=== PATIENT | female | born 1985 | race Two or more races ===

== ENCOUNTER 2018-03-10 11:31 | Inpatient (IN) | payer MEDICAID ==
[~2018-03-10] VITALS: Ht 162.6 cm; Wt 102.2 kg
[2018-03-10] MEDS ORDERED: SODIUM CHLORIDE 0.9% 1,000 ML IVB ONE (11:56)
[2018-03-10] MEDS ORDERED: ONDANSETRON HCL 4 MG/2 ML VIAL IV ONE (12:00)
[2018-03-10] MEDS ORDERED: KETOROLAC TROMETH 30 MG/ML 1ML VIAL IV ONE (12:00)
[2018-03-10 13:28] LABS: Basophils # (auto) 0 uL; Basophils % (auto) 0.1 % (0.0-2.0); Eosinophils # (auto) 0.1 uL; Eosinophils % (auto) 0.7 % (0.0-7.0); Hematocrit 39.5 % (36.0-46.0); Hemoglobin 13.4 g/dL (12.2-16.2); Lymphocytes # (auto) 1.8 uL; Lymphocytes % (auto) 12.2 % (10.0-50.0); Mean Corpuscular Hemoglobin 31.6 pg (28.0-32.0); Mean Corpuscular Hgb Conc. 33.9 g/dL (32.0-36.0); Mean Corpuscular Volume 93.1 fL (80.0-100.0); Monocytes # (auto) 1.1 uL; Monocytes % (auto) 7.6 % (0.0-12.0); Neutrophils # (auto) 11.9 uL; Neutrophils % (auto) 79.4 % (37.0-80.0); Platelet Count (auto) 330 10^3/uL (140-450); Red Blood Cells 4.24 10^6/uL (4.0-5.20); Red Cell Distribution Width 13.8 % (11.8-14.3)
[2018-03-10 13:45] LABS: Amylase 40 U/L (25-115); Lipase 127 U/L (73-393)
[2018-03-10 13:51] LABS: Albumin 3.4 g/dL (3.4-5.0); BUN/Creatinine Ratio 11.3; Bilirubin, Total 0.5 mg/dL (0.2-1.0); Calcium 8.4 mg/dL (8.5-10.1); Magnesium 2.5 mg/dL (1.6-2.6); Potassium 3.9 mmol/L (3.5-5.1); Total Protein 8.1 g/dL (6.4-8.2)
[2018-03-10] MEDS ORDERED: cefTRIAXone 1GM/10ml IVPUSH 10 ML IV ONE (15:00)
[2018-03-10] MEDS ORDERED: NITROGLYCERIN 0.4 MG SL TAB SL PRN (15:00)
[2018-03-10] MEDS ORDERED: ACETAMINOPHEN 325 MG TAB PO PRN (15:00)
[2018-03-10] MEDS ORDERED: MORPHINE SULF INJ 2 MG/ML SYRINGE 1ML IV PRN (15:00)
[2018-03-10] MEDS: SODIUM CHLORIDE 0.9% 1,000 ML IV SCH (15:20)
[2018-03-10 15:44] LABS: INR 1.03 (0.9-1.15)
[2018-03-10] MEDS: metroNIDAZOLE 500MG/100ML 100 ML IV SCH ×2 (16:06→22:17)
[2018-03-10 16:37] VITALS: BP 103/67
[2018-03-10] MEDS: MORPHINE SULF INJ 2 MG/ML SYRINGE 1ML IV PRN (16:45)
[2018-03-10] MEDS: ONDANSETRON HCL 4 MG/2 ML VIAL IV PRN (16:45)
[2018-03-10 17:00] LABS: Urine Bacteria NONE SEEN /hpf (None Seen); Urine Blood Negative /uL (Negative); Urine Mucus FEW (None Seen); Urine Specific Gravity 1.017 (1.001-1.035); Urine WBC 11 /hpf (0 - 5)
[2018-03-10 17:10] VITALS: BP 103/67
[2018-03-10 22:00] VITALS: BP 116/66
[2018-03-10] MEDS: FAMOTIDINE 20 MG TAB PO SCH (22:00)
[2018-03-11] MEDS: SODIUM CHLORIDE 0.9% 1,000 ML IV SCH ×3 (03:55→20:15)
[2018-03-11] MEDS: metroNIDAZOLE 500MG/100ML 100 ML IV SCH ×4 (03:55→21:40)
[2018-03-11] MEDS: MORPHINE SULF INJ 2 MG/ML SYRINGE 1ML IV PRN ×4 (03:56→18:38)
[2018-03-11 05:42] VITALS: BP 105/55
[2018-03-11 07:36] LABS: Basophils # (auto) 0 uL; Basophils % (auto) 0.2 % (0.0-2.0); Eosinophils # (auto) 0.1 uL; Eosinophils % (auto) 0.5 % (0.0-7.0); Hemoglobin 12.4 g/dL (12.2-16.2); Lymphocytes # (auto) 1.8 uL; Lymphocytes % (auto) 11.9 % (10.0-50.0); Mean Corpuscular Hemoglobin 30.9 pg (28.0-32.0); Mean Corpuscular Hgb Conc. 33.4 g/dL (32.0-36.0); Mean Corpuscular Volume 92.3 fL (80.0-100.0); Monocytes # (auto) 0.9 uL; Monocytes % (auto) 6.1 % (0.0-12.0); Neutrophils # (auto) 12.3 uL; Neutrophils % (auto) 81.3 % (37.0-80.0); Platelet Count (auto) 289 10^3/uL (140-450); Red Blood Cells 4.01 10^6/uL (4.0-5.20); Red Cell Distribution Width 13.8 % (11.8-14.3); White Blood Cell 15.1 10^3/uL (4.4-10.8)
[2018-03-11 07:57] LABS: Albumin 2.6 g/dL (3.4-5.0); BUN/Creatinine Ratio 8.2; Bilirubin, Total 1.2 mg/dL (0.2-1.0); Calcium 7.6 mg/dL (8.5-10.1); Potassium 3.4 mmol/L (3.5-5.1); Total Protein 6.9 g/dL (6.4-8.2)
[2018-03-11 08:00] VITALS: BP 109/51
[2018-03-11] MEDS: ONDANSETRON HCL 4 MG/2 ML VIAL IV PRN (09:47)
[2018-03-11] MEDS: FAMOTIDINE 20 MG TAB PO SCH (09:48)
[2018-03-11] MEDS: cefTRIAXone 1GM/10ml IVPUSH 10 ML IV SCH (09:48)
[2018-03-11] MEDS ORDERED: MULTIPLE VITAMIN TAB PO SCH (10:00)
[2018-03-11 12:00] VITALS: BP 110/55
[2018-03-11] MEDS: POTASSIUM CHL 20MEQ/100ML 100 ML IV SCH ×2 (15:51→18:39)
[2018-03-11 16:00] VITALS: BP 105/56
[2018-03-11] MEDS: HYDROcodone-ACET 5/325MG TAB PO PRN (21:42)
[2018-03-11 22:08] VITALS: BP 100/61
[2018-03-12] MEDS: SODIUM CHLORIDE 0.9% 1,000 ML IV SCH ×3 (00:08→18:05)
[2018-03-12] MEDS: metroNIDAZOLE 500MG/100ML 100 ML IV SCH ×4 (03:58→22:23)
[2018-03-12] MEDS: MORPHINE SULF INJ 2 MG/ML SYRINGE 1ML IV PRN ×2 (04:59→09:15)
[2018-03-12 05:55] VITALS: BP 120/72
[2018-03-12 07:08] LABS: Basophils # (auto) 0 uL; Basophils % (auto) 0.3 % (0.0-2.0); Eosinophils # (auto) 0.2 uL; Eosinophils % (auto) 1.3 % (0.0-7.0); Hematocrit 35.3 % (36.0-46.0); Hemoglobin 11.9 g/dL (12.2-16.2); Lymphocytes # (auto) 1.6 uL; Lymphocytes % (auto) 11.6 % (10.0-50.0); Mean Corpuscular Hemoglobin 31.6 pg (28.0-32.0); Mean Corpuscular Hgb Conc. 33.8 g/dL (32.0-36.0); Mean Corpuscular Volume 93.4 fL (80.0-100.0); Monocytes # (auto) 1.2 uL; Monocytes % (auto) 8.8 % (0.0-12.0); Neutrophils # (auto) 10.5 uL; Nucleated Red Blood Cells % 0.1 %; Platelet Count (auto) 283 10^3/uL (140-450); Red Blood Cells 3.78 10^6/uL (4.0-5.20); Red Cell Distribution Width 13.8 % (11.8-14.3); White Blood Cell 13.4 10^3/uL (4.4-10.8)
[2018-03-12 07:29] LABS: Albumin 2.4 g/dL (3.4-5.0); BUN/Creatinine Ratio 12.1; Bilirubin, Total 1.5 mg/dL (0.2-1.0); Calcium 7.9 mg/dL (8.5-10.1); Potassium 3.6 mmol/L (3.5-5.1); Total Protein 6.9 g/dL (6.4-8.2)
[2018-03-12 08:00] VITALS: BP 101/64
[2018-03-12] MEDS: cefTRIAXone 1GM/10ml IVPUSH 10 ML IV SCH (09:20)
[2018-03-12] MEDS: PANTOPRAZOLE 40 MG/10 ML VIAL IV SCH (09:20)
[2018-03-12 12:00] VITALS: BP 109/63
[2018-03-12] MEDS: HYDROmorphone HCL 2 MG/ML VL IV PRN ×3 (12:41→23:00)
[2018-03-12] MEDS: HYDROcodone-ACET 5/325MG TAB PO PRN (14:10)
[2018-03-12 16:00] VITALS: BP 125/81
[2018-03-12 20:00] VITALS: BP 93/59
[2018-03-12 22:00] VITALS: BP 93/59
[2018-03-13] MEDS: SODIUM CHLORIDE 0.9% 1,000 ML IV SCH ×3 (01:10→17:21)
[2018-03-13] MEDS: HYDROmorphone HCL 2 MG/ML VL IV PRN ×4 (03:54→20:07)
[2018-03-13] MEDS: metroNIDAZOLE 500MG/100ML 100 ML IV SCH ×4 (04:28→21:48)
[2018-03-13 05:08] VITALS: BP 88/40
[2018-03-13 06:34] LABS: INR 1.17 (0.9-1.15); Prothrombin Time 12.4 sec (9.27-12.13)
[2018-03-13 08:00] VITALS: BP 95/54
[2018-03-13 08:48] VITALS: BP 95/54
[2018-03-13] MEDS: cefTRIAXone 1GM/10ml IVPUSH 10 ML IV SCH (08:55)
[2018-03-13] MEDS: PANTOPRAZOLE 40 MG/10 ML VIAL IV SCH (08:56)
[2018-03-13] MEDS ORDERED: SUCCINYLCHOLINE CHLORIDE 20 MG/ML 10ML VIAL IV ONE (10:25)
[2018-03-13] MEDS ORDERED: LIDOCAINE 1% (LOCAL ANESTH.) PF 5ml SDV ONE (10:25)
[2018-03-13] MEDS ORDERED: BUPIVACAINE 0.25% INJ 50ML VIAL ONE (10:26)
[2018-03-13] MEDS ORDERED: PROPOFOL 10 MG/ML 20 ML IV ONE (10:43)
[2018-03-13] MEDS ORDERED: MIDAZOLAM HCL 1MG/1ML-2 ML VIAL ONE (10:44)
[2018-03-13] MEDS ORDERED: METOCLOPRAMIDE HCL 5MG/ml INJ 2ml VIAL ONE (11:05)
[2018-03-13] MEDS ORDERED: fentaNYL CITRATE 100 MCG/2 ML VL ONE (11:19)
[2018-03-13] MEDS ORDERED: ceFAZolin 1GM/50ML 50 ML IV ONE (11:26)
[2018-03-13] MEDS ORDERED: HYDROmorphone HCL 2 MG/ML VL IV PRN ×2 (11:30)
[2018-03-13] MEDS ORDERED: NALOXONE HCL 0.4 MG/ML VIAL IV PRN (11:30)
[2018-03-13] MEDS ORDERED: ONDANSETRON HCL 4 MG/2 ML VIAL IV ONE ×2 (11:30→12:15)
[2018-03-13] MEDS ORDERED: NEOSTIGMINE 1 MG/ML INJ (10mg/10ML VIAL) ONE (11:57)
[2018-03-13] MEDS ORDERED: GLYCOPYRROLATE 0.2 MG/ML 1ML VIAL ONE (11:57)
[2018-03-13] MEDS ORDERED: HYDROmorphone HCL 2 MG/ML VL IV ONE ×2 (12:15→12:48)
[2018-03-13 17:00] VITALS: BP 94/58
[2018-03-13 20:00] VITALS: BP 93/59
[2018-03-13 22:11] VITALS: BP 93/59
[2018-03-14] MEDS: HYDROmorphone HCL 2 MG/ML VL IV PRN ×4 (01:10→13:15)
[2018-03-14] MEDS: SODIUM CHLORIDE 0.9% 1,000 ML IV SCH ×2 (03:07→10:32)
[2018-03-14] MEDS: metroNIDAZOLE 500MG/100ML 100 ML IV SCH ×3 (04:08→16:55)
[2018-03-14 08:02] VITALS: BP 101/62
[2018-03-14] MEDS: cefTRIAXone 1GM/10ml IVPUSH 10 ML IV SCH (09:06)
[2018-03-14] MEDS: PANTOPRAZOLE 40 MG/10 ML VIAL IV SCH (09:06)
[2018-03-14 12:08] VITALS: BP 104/60
[2018-03-14 14:14] LABS: Albumin 2.2 g/dL (3.4-5.0); Calcium 7.6 mg/dL (8.5-10.1); Potassium 3.5 mmol/L (3.5-5.1)
[2018-03-14 14:16] LABS: BUN/Creatinine Ratio 5.6
[2018-03-14 14:19] LABS: Bilirubin, Total 0.3 mg/dL (0.2-1.0); Total Protein 6.8 g/dL (6.4-8.2)
[2018-03-14 17:00] VITALS: BP 129/75
[2018-03-14 17:21] VITALS: BP 129/75
[2018-03-14] MEDS: HYDROcodone-ACET 5/325MG TAB PO PRN (17:36)
== END 2018-03-14 19:27 | disposition home or self-care (01) | DRG 263 ==
LOC: EDBD 11:31 → ER 11:31 → EDSEX 11:31 → TELE 11:32 → TELE-EAST 16:41 → EAST 03-11 12:43
PROVIDERS: ADMIT Internal Medicine; ATTEND Internal Medicine
PROC: 0FT44ZZ Resection of Gallbladder, Percutaneous Endoscopic Approach (ICD-10-PCS; principal; 2018-03-13 11:00)
DX: K80.00 Calculus of gallbladder with acute cholecystitis without obstruction (principal); R65.10 Systemic inflammatory response syndrome (SIRS) of non-infectious origin without acute organ dysfunction; E66.01 Morbid (severe) obesity due to excess calories; E83.51 Hypocalcemia; E87.1 Hypo-osmolality and hyponatremia; E87.6 Hypokalemia; F17.210 Nicotine dependence, cigarettes, uncomplicated; R79.89 Other specified abnormal findings of blood chemistry; F19.10 Other psychoactive substance abuse, uncomplicated; Z82.49 Family history of ischemic heart disease and other diseases of the circulatory system; Z68.38 Body mass index [BMI] 38.0-38.9, adult
CPT/HCPCS: 36415; 71045; 76705; 80053; 81001; 82150; 83605; 83690; 83735; 84702; 85025; 85610; 85730; 86850; 86900; 86901; 87040; 87086; 96361; 96374; 96375; 96376; C9113; J0330; J0690; J0696; J1885; J2250; J2405; J2704; J3480; J3490

== ENCOUNTER 2019-03-07 06:24 | Emergency (ER) | payer MEDICAID ==
[~2019-03-07] VITALS: Ht 160 cm; Wt 99.8 kg
[2019-03-07 08:40] VITALS: BP 121/72
[2019-03-07 08:46] LABS: Basophils # (auto) 0 uL; Basophils % (auto) 0.4 % (0.0-2.0); Eosinophils # (auto) 0.3 uL; Eosinophils % (auto) 2.5 % (0.0-7.0); Hemoglobin 13.6 g/dL (12.2-16.2); Mean Corpuscular Hemoglobin 31.7 pg (28.0-32.0); Mean Corpuscular Volume 93.1 fL (80.0-100.0); Monocytes # (auto) 0.9 uL; Monocytes % (auto) 8.4 % (0.0-12.0); Neutrophils # (auto) 6.1 uL; Neutrophils % (auto) 59.7 % (37.0-80.0); Platelet Count (auto) 320 10^3/uL (140-450); Red Blood Cells 4.29 10^6/uL (4.0-5.20); Red Cell Distribution Width 13.2 % (11.8-14.3); White Blood Cell 10.3 10^3/uL (4.4-10.8)
== END 2019-03-07 09:22 | disposition home or self-care (01) ==
LOC: ER 06:28
DX: S80.01XA Contusion of right knee, initial encounter (principal); F17.210 Nicotine dependence, cigarettes, uncomplicated; F12.10 Cannabis abuse, uncomplicated; F15.10 Other stimulant abuse, uncomplicated; Z90.710 Acquired absence of both cervix and uterus; Z88.6 Allergy status to analgesic agent; W10.8XXA Fall (on) (from) other stairs and steps, initial encounter; Y93.89 Activity, other specified; Y92.512 Supermarket, store or market as the place of occurrence of the external cause; Y99.8 Other external cause status
CPT/HCPCS: 36415; 73562; 85025

== ENCOUNTER 2019-03-29 01:44 | Emergency (ER) | payer MEDICAID ==
[~2019-03-29] VITALS: Ht 160 cm; Wt 81.6 kg
[2019-03-29 03:07] LABS: Basophils # (auto) 0.1 uL; Basophils % (auto) 0.7 % (0.0-2.0); Eosinophils # (auto) 0.4 uL; Eosinophils % (auto) 4.4 % (0.0-7.0); Hematocrit 40.9 % (36.0-46.0); Hemoglobin 13.9 g/dL (12.2-16.2); Lymphocytes # (auto) 3.4 uL; Lymphocytes % (auto) 37.2 % (10.0-50.0); Mean Corpuscular Hemoglobin 31.7 pg (28.0-32.0); Mean Corpuscular Hgb Conc. 33.9 g/dL (32.0-36.0); Mean Corpuscular Volume 93.5 fL (80.0-100.0); Monocytes # (auto) 0.7 uL; Monocytes % (auto) 7.4 % (0.0-12.0); Neutrophils # (auto) 4.6 uL; Neutrophils % (auto) 50.3 % (37.0-80.0); Nucleated Red Blood Cells % 0.1 %; Platelet Count (auto) 307 10^3/uL (140-450); Red Blood Cells 4.38 10^6/uL (4.0-5.20); Red Cell Distribution Width 13.4 % (11.8-14.3); White Blood Cell 9.2 10^3/uL (4.4-10.8)
[2019-03-29 03:12] LABS: Urine Bacteria FEW /hpf (None Seen); Urine Blood Negative /uL (Negative); Urine Hyaline Cast FEW /lpf (0 - 2); Urine Specific Gravity 1.021 (1.001-1.035); Urine WBC 7 /hpf (0 - 5)
[2019-03-29 03:25] LABS: Albumin 3.7 g/dL (3.4-5.0); BUN/Creatinine Ratio 16.3; Calcium 8.7 mg/dL (8.5-10.1); Potassium 3.7 mmol/L (3.5-5.1)
[2019-03-29 03:28] LABS: Bilirubin, Total 0.4 mg/dL (0.2-1.0); Total Protein 7.4 g/dL (6.4-8.2)
[2019-03-29 07:45] VITALS: BP 124/76
[2019-03-29] MEDS ORDERED: LEVETIRACETAM 500 MG TAB PO ONE (07:45)
[2019-03-29] MEDS ORDERED: ACETAMINOPHEN 500 MG TAB PO ONE (08:00)
== END 2019-03-29 08:19 | disposition home or self-care (01) ==
LOC: ER 01:47
DX: S01.81XA Laceration without foreign body of other part of head, initial encounter (principal); G40.909 Epilepsy, unspecified, not intractable, without status epilepticus; N39.0 Urinary tract infection, site not specified; F17.210 Nicotine dependence, cigarettes, uncomplicated; F12.10 Cannabis abuse, uncomplicated; F15.10 Other stimulant abuse, uncomplicated; Z90.49 Acquired absence of other specified parts of digestive tract; Z88.8 Allergy status to other drugs, medicaments and biological substances; W18.39XA Other fall on same level, initial encounter; Y93.89 Activity, other specified; Y92.89 Other specified places as the place of occurrence of the external cause; Y99.8 Other external cause status
CPT/HCPCS: 12011; 36415; 70450; 80053; 81001; 81025; 82542; 85025

== ENCOUNTER 2019-04-27 03:52 | Emergency (ER) | payer MEDICAID ==
[~2019-04-27] VITALS: Ht 162.6 cm; Wt 77.1 kg
[2019-04-27] MEDS ORDERED: IBUPROFEN 800 MG TAB PO ONE (07:00)
[2019-04-27 07:08] VITALS: BP 112/71
== END 2019-04-27 07:20 | disposition home or self-care (01) ==
LOC: ER 03:55
DX: S60.112A Contusion of left thumb with damage to nail, initial encounter (principal); F17.210 Nicotine dependence, cigarettes, uncomplicated; F12.10 Cannabis abuse, uncomplicated; F15.10 Other stimulant abuse, uncomplicated; Z88.6 Allergy status to analgesic agent; Z90.49 Acquired absence of other specified parts of digestive tract; W20.8XXA Other cause of strike by thrown, projected or falling object, initial encounter; Y93.89 Activity, other specified; Y92.89 Other specified places as the place of occurrence of the external cause; Y99.8 Other external cause status
CPT/HCPCS: 11740; 73140

== ENCOUNTER → 2019-10-11 | Emergency (ER) | payer MEDICAID ==
[~2019-10-11] VITALS: Ht 162.6 cm; Wt 117.9 kg
[~2019-10-11] MED LIST: ALUM & MAG HYDROX-SIMETH LIQ(MAALOX) 30 ML PO ONE; ONDANSETRON HCL 4 MG/2 ML VIAL IV ONE; SUMAtriptan SUCCINATE 6 MG/0.5 ML VL SC ONE; levETIRAcetam 500 MG/5ML INJ IV ONE
[2019-10-11 23:25] LABS: Basophils # (auto) 0.1 10 ^3/uL (0-0.2); Basophils % (auto) 0.5 % (0.0-2.0); Eosinophils # (auto) 0.2 10 ^3/uL (0-0.8); Eosinophils % (auto) 1.8 % (0.0-7.0); Hematocrit 40.9 % (36.0-46.0); Hemoglobin 14.1 g/dL (12.2-16.2); Lymphocytes % (auto) 28.8 % (10.0-50.0); Mean Corpuscular Hemoglobin 31.7 pg (28.0-32.0); Mean Corpuscular Hgb Conc. 34.5 g/dL (32.0-36.0); Mean Corpuscular Volume 91.9 fL (80.0-100.0); Monocytes # (auto) 0.8 10 ^3/uL (0-1.3); Monocytes % (auto) 8.2 % (0.0-12.0); Neutrophils # (auto) 6.3 10 ^3/uL (1.6-8.6); Neutrophils % (auto) 60.7 % (37.0-80.0); Platelet Count (auto) 360 10^3/uL (140-450); Red Blood Cells 4.45 10^6/uL (4.0-5.20); Red Cell Distribution Width 13.7 % (11.8-14.3); White Blood Cell 10.4 10^3/uL (4.4-10.8)
[2019-10-11 23:42] LABS: Albumin 3.8 g/dL (3.4-5.0); BUN/Creatinine Ratio 12.2; Calcium 8.7 mg/dL (8.5-10.1); Magnesium 2.2 mg/dL (1.6-2.6); Potassium 3.5 mmol/L (3.5-5.1)
[2019-10-11 23:45] LABS: Bilirubin, Total 0.5 mg/dL (0.2-1.0); Total Protein 8.2 g/dL (6.4-8.2)
[2019-10-12 00:30] LABS: Urine Pregnacy Test Negative (Negative)
[2019-10-12 00:36] LABS: Urine Amorphous Crystal MOD /hpf (None Seen); Urine Bacteria MOD /hpf (None Seen); Urine Blood Negative /uL (Negative); Urine Mucus MODERATE (None Seen); Urine Specific Gravity 1.027 (1.001-1.035); Urine WBC 271 /hpf (0 - 5); Urine WBC Clumps PRESENT /hpf (None Seen)
[2019-10-12 00:39] LABS: Amphetamine Screen, Urine POSITIVE (NEGATIVE); Barbiturate Scree,Urine NEGATIVE (NEGATIVE); Benzodiazephine Screen, Urine NEGATIVE (NEGATIVE); Cannabinoid Screen, Urine POSITIVE (NEGATIVE); Cocaine Screen, Urine NEGATIVE (NEGATIVE)
[2019-10-12 00:47] LABS: Opiate Scree,Urine POSITIVE (NEGATIVE); Phencyclidine Screen, Urine NEGATIVE (NEGATIVE)
[2019-10-12 02:40] VITALS: BP 114/77
== END | disposition home or self-care (01) ==
LOC: ER 22:23
DX: G43.009 Migraine without aura, not intractable, without status migrainosus (principal); F19.10 Other psychoactive substance abuse, uncomplicated; F10.129 Alcohol abuse with intoxication, unspecified; N39.0 Urinary tract infection, site not specified; F17.210 Nicotine dependence, cigarettes, uncomplicated; F12.10 Cannabis abuse, uncomplicated; Y90.9 Presence of alcohol in blood, level not specified
CPT/HCPCS: 36415; 80053; 80307; 81001; 81025; 83735; 85025; 96372; 96374; 99284; J7060

== ENCOUNTER → 2019-12-26 | Emergency (ER) | payer MEDICAID | END | disposition home or self-care (01) | LOC: ER 00:54 | DX: M79.601 Pain in right arm (principal); Z53.21 Procedure and treatment not carried out due to patient leaving prior to being seen by health care provider ==

== ENCOUNTER 2019-12-30 00:19 | Emergency (ER) | payer MEDICAID ==
[~2019-12-30] VITALS: Ht 162.6 cm; Wt 95.3 kg
[2019-12-30] MEDS ORDERED: IBUPROFEN 800 MG TAB PO ONE (03:00)
[2019-12-30 03:07] VITALS: BP 102/64
== END 2019-12-30 04:07 | disposition home or self-care (01) ==
LOC: ER 00:34
DX: S00.03XA Contusion of scalp, initial encounter (principal); S10.93XA Contusion of unspecified part of neck, initial encounter; S60.211A Contusion of right wrist, initial encounter; F17.210 Nicotine dependence, cigarettes, uncomplicated; Z88.6 Allergy status to analgesic agent; Y04.0XXA Assault by unarmed brawl or fight, initial encounter; Y93.89 Activity, other specified; Y92.89 Other specified places as the place of occurrence of the external cause; Y99.8 Other external cause status
CPT/HCPCS: 70450; 70486; 72125; 73090

== ENCOUNTER 2020-05-23 00:46 | Emergency (ER) | payer MEDICAID ==
[~2020-05-23] VITALS: Ht 162.6 cm; Wt 81.6 kg
[2020-05-23 07:31] VITALS: BP 137/85
[2020-05-23 07:58] LABS: Urine Bacteria MANY /hpf (None Seen); Urine Blood Negative /uL (Negative); Urine Mucus FEW (None Seen); Urine Specific Gravity 1.024 (1.001-1.035); Urine WBC 7 /hpf (0 - 5)
[2020-05-23] MEDS ORDERED: KETOROLAC TROMETH 60MG/2ML VIAL IM ONE (08:00)
[2020-05-23] MEDS ORDERED: HYDROcodone-ACET 5/325MG TAB PO ONE (08:00)
== END 2020-05-23 08:17 | disposition home or self-care (01) ==
LOC: ER 00:46
DX: M51.17 Intervertebral disc disorders with radiculopathy, lumbosacral region (principal); N39.0 Urinary tract infection, site not specified; F17.210 Nicotine dependence, cigarettes, uncomplicated; Z88.6 Allergy status to analgesic agent
CPT/HCPCS: 72070; 72100; 81001; 96372; 99284; J1885

== ENCOUNTER 2021-02-09 21:53 | Emergency (ER) | payer MEDICAID ==
[~2021-02-09] VITALS: Ht 162.6 cm; Wt 77.1 kg
[2021-02-09 21:53] VITALS: BP 116/77
[2021-02-09 23:02] LABS: Urine Bacteria FEW /hpf (None Seen); Urine Blood Negative /uL (Negative); Urine Hyaline Cast FEW /lpf (0 - 2); Urine Mucus FEW (None Seen); Urine Specific Gravity 1.037 (1.001-1.035); Urine WBC 47 /hpf (0 - 5)
== END 2021-02-10 02:20 | disposition left against medical advice (07) ==
LOC: ER 21:59
DX: A64 Unspecified sexually transmitted disease (principal); Z53.21 Procedure and treatment not carried out due to patient leaving prior to being seen by health care provider
CPT/HCPCS: 81001; 81025

== ENCOUNTER 2022-01-26 03:43 | Emergency (ER) | payer MEDICAID ==
[~2022-01-26] VITALS: Ht 160 cm; Wt 72.3 kg
[2022-01-26 04:54] LABS: Basophils # (auto) 0.1 10 ^3/uL (0-0.2); Basophils % (auto) 0.7 % (0.0-2.0); Eosinophils # (auto) 0.3 10 ^3/uL (0-0.8); Eosinophils % (auto) 3.7 % (0.0-7.0); Hematocrit 40.4 % (36.0-46.0); Hemoglobin 13.4 g/dL (12.2-16.2); Lymphocytes # (auto) 2.2 10 ^3/uL (0.4-5.4); Lymphocytes % (auto) 27.8 % (10.0-50.0); Mean Corpuscular Hemoglobin 29.1 pg (28.0-32.0); Mean Corpuscular Hgb Conc. 33.1 g/dL (32.0-36.0); Mean Corpuscular Volume 87.7 fL (80.0-100.0); Monocytes # (auto) 0.6 10 ^3/uL (0-1.3); Monocytes % (auto) 7.6 % (0.0-12.0); Neutrophils # (auto) 4.7 10 ^3/uL (1.6-8.6); Neutrophils % (auto) 60.2 % (37.0-80.0); Red Blood Cells 4.61 10^6/uL (4.0-5.20); Red Cell Distribution Width 13.7 % (11.8-14.3); White Blood Cell 7.8 10^3/uL (4.4-10.8)
[2022-01-26 05:18] LABS: Albumin 3.6 g/dL (3.4-5.0); BUN/Creatinine Ratio 17.8; Calcium 8.9 mg/dL (8.5-10.1); Potassium 3.7 mmol/L (3.5-5.1)
[2022-01-26 05:21] LABS: Bilirubin, Total 0.4 mg/dL (0.2-1.0)
[2022-01-26 06:04] VITALS: BP 113/65
== END 2022-01-26 06:04 | disposition home or self-care (01) ==
LOC: ER 03:43
DX: R29.810 Facial weakness (principal); R20.0 Anesthesia of skin; F17.210 Nicotine dependence, cigarettes, uncomplicated; F12.10 Cannabis abuse, uncomplicated; F15.10 Other stimulant abuse, uncomplicated; Z90.49 Acquired absence of other specified parts of digestive tract; Z32.02 Encounter for pregnancy test, result negative; Z88.6 Allergy status to analgesic agent
CPT/HCPCS: 36415; 70450; 71045; 80053; 81025; 84484; 85025; 93005

== ENCOUNTER 2022-03-26 12:30 | Emergency (ER) | payer MEDICAID ==
[~2022-03-26] VITALS: Ht 162.6 cm; Wt 75.9 kg
[2022-03-26 13:45] VITALS: BP 112/79
[2022-03-26] MEDS ORDERED: CEPH-510 PO (14:14)
[2022-03-26] MEDS ORDERED: IBUP800T27 PO (14:14)
[2022-03-26] MEDS ORDERED: TRIA0.02 TOP (14:14)
[2022-03-26] MEDS ORDERED: ACETAMINOPHEN 500 MG TAB PO ONE (14:15)
== END 2022-03-26 14:21 | disposition home or self-care (01) ==
LOC: ER 12:40
DX: L02.423 Furuncle of right upper limb (principal); L20.9 Atopic dermatitis, unspecified; F17.210 Nicotine dependence, cigarettes, uncomplicated; F15.10 Other stimulant abuse, uncomplicated; F14.10 Cocaine abuse, uncomplicated; Z90.49 Acquired absence of other specified parts of digestive tract; Z88.6 Allergy status to analgesic agent
CPT/HCPCS: 10060